=== PATIENT | male | born 2000 | race Caucasian/White ===

== ENCOUNTER → 2023-07-30 | Outpatient (CLI) | payer BC ==
--- NOTE | 2023-07-31 10:06 | US ---
EXAMINATION TYPE: US scrotum with doppler. Grayscale and color Doppler Duplex imaging performed of maxi herrmann scrotum. DATE OF EXAM: 07/30/2023 COMPARISON: NONE CLINICAL INDICATION: Male, 22 years old with history of R22.30 LOCALIZED MASS SWELLING LUMP EXTREMITY ; rt side pain EXAM MEASUREMENTS: TESTICLES: Right Testicle: 5.1 x 2.5 x 3.2 cm Fluid pocket seen inferior 2.4 x 1.1 cm. Left Testicle: 5.2 x 2.5 x 3.5 cm EPIDIDYMIS HEAD: Right Epididymis: 1.0 x 1.2 x .9 cm Left Epididymis: 1.1 x .8 x 1.9 cm Doppler performed to assess for testicular vascularity; good bilateral color flow and waveforms are s een. There is no evidence of testicular torsion. IMPRESSION: 1. No intratesticular mass or torsion. 2. No epididymal abnormalities. 3. Small focal hydroceles bilaterally. 4. No varicoceles
== END | disposition home or self-care (01) ==
LOC: RADUSWWP 14:57
PROVIDERS: ATTEND Family Medicine
DX: N43.3 Hydrocele, unspecified (principal); R22.30 Localized swelling, mass and lump, unspecified upper limb
CPT/HCPCS: 76870; 93975